=== PATIENT | male | born 1980 | race African-American/Black ===

== ENCOUNTER 2019-01-29 21:45 | Emergency (ER) | payer OTHER, SELFPAY ==
[2019-01-29] MEDS ORDERED: Acetaminophen 500 MG TAB ONE (22:31)
[2019-01-29] MEDS ORDERED: Ketorolac Tromethamine 60 MG/2 ML VIAL ONE ×2 (22:31)
--- NOTE | 2019-01-29 23:06 | RAD ---
Radiograph right knee 4 views: HISTORY: Right knee pain FINDINGS: No fracture or dislocation. Joint spaces are maintained without erosions or osteophytes. Small joint effusion. Mild edema in Hoffa's fat pad. No destructive osseous lesion. IMPRESSION: 1. No osseous abnormality identified. 2. Small joint effusion, and Hoffa's fat pad mild edema.
== END 2019-01-29 23:00 | disposition home or self-care (01) ==
LOC: NAV ERS 21:45
DX: M25.461 Effusion, right knee (principal); M25.561 Pain in right knee
CPT/HCPCS: 96372; J1885